=== PATIENT | male | born 1950 | race Caucasian/White ===

== ENCOUNTER 2016-11-08 08:58 | Day surgery (SDC) | payer OTHER ==
[~2016-11-08] VITALS: Ht 180.3 cm; Wt 73.0 kg
[~2016-11-08 08:58] MED LIST: AIRBORNE GUMMI1 EACH PO; ALEVE220 MG PO; CARDIZEM CD,CA240 MG PO; CARVEDILOL6.25 MG PO; DIGOXIN250 MCG PO; FUROSEMIDE40 MG PO; LEVAQUIN500 MG PO; LISINOPRIL10 MG PO; MUCINEX600 MG PO; NICODERM CQ1 EAC1 TD; PRADAXA150 MG PO; PREDNISONE10 MG PO; SOTALOL80 MG PO; SPIRIVA1 INHALATI IH; VENTOLIN HFA18 GM IH
== END 2016-11-08 11:20 | disposition home or self-care (01) ==
LOC: CATH 08:58
PROC: 5A2204Z Restoration of Cardiac Rhythm, Single (ICD-10-PCS; principal; 2016-11-08)
DX: I48.1 Persistent atrial fibrillation (principal); I42.0 Dilated cardiomyopathy; R06.02 Shortness of breath; I10 Essential (primary) hypertension; Z87.891 Personal history of nicotine dependence
CPT/HCPCS: 93005

== ENCOUNTER 2017-08-13 11:33 | Inpatient (IN) | payer OTHER ==
[~2017-08-13] VITALS: Ht 180.3 cm; Wt 78.1 kg
[2017-08-13 12:37] LABS: BASOPHIL (%) 0.5 % (0-1); BASOPHIL COUNT 0.1 K/uL (0-0.1); EOSINOPHIL (%) 0.1 % (0-5); HEMATOCRIT 37.1 % (38.0-50.0); HEMOGLOBIN 13.4 G/DL (12.5-16.6); IMMATURE GRANULOCYTE (%) 0.4 % (0.0-0.7); LYMPHOCYTE (%) 5.4 % (15-42); LYMPHOCYTE COUNT 0.5 K/uL (1.0-2.8); MCH 32.7 PG (29.0-34.0); MCHC 36.1 G/DL (30.0-36.0); MCV 90.5 FL (86-99); MONOCYTE (%) 11.6 % (3-12); MONOCYTE COUNT 1.1 K/uL (0-0.8); NEUTROPHIL COUNT 7.6 K/uL (1.8-6.4); PLATELET COUNT 256 K/uL (156-360); RBC DIS.WIDTH-CV 12.2 % (11.8-14.6); RBC DIS.WIDTH-SD 40.4 % (39-53); WHITE BLOOD COUNT 9.3 K/uL (4.1-10.2)
[2017-08-13 12:48] LABS: ALBUMIN 3.5 g/dL (3.2-4.8); CHLORIDE 89 mEq/L (99-109); SODIUM 122 mEq/L (136-147)
[2017-08-13 12:50] LABS: GLUCOSE 106 mg/dL (70-99); TOTAL PROTEIN 6.5 g/dL (6.4-8.3)
[2017-08-13 12:52] LABS: TOTAL BILIRUBIN 0.8 mg/dL (0.0-1.0)
[2017-08-13 12:54] LABS: ALKALINE PHOSPHATASE 89 IU/L (3-129); CREATININE 0.8 mg/dL (0.6-1.3); GFR ESTIMATE (CALCULATED) > 59 mL/min/ (58.99-99999)
[2017-08-13 12:55] LABS: AST (GOT) 25 IU/L (2-34); UREA NITROGEN (BUN) 11 mg/dL (9-23)
[2017-08-13 12:57] LABS: ALT (GPT) 17 IU/L (3-49)
[2017-08-13 13:01] LABS: TROP-I INTERPRETATION NEGATIVE; TROPONIN-I < 0.01 ng/mL (0.0-0.30)
[2017-08-13 15:54] LABS: THYROTROPIN (TSH) 0.55 MIU/L (0.4-5.5)
[2017-08-13] MEDS ORDERED: PRADAXA150 MG PO (15:54)
[2017-08-13] MEDS ORDERED: LISINOPRIL10 MG PO (15:55)
[2017-08-13] MEDS ORDERED: DIGOXIN250 MCG PO (15:55)
[2017-08-13 16:09] LABS: APPEARANCE CLEAR ((CLEAR)); BILIRUBIN NEGATIVE; BLOOD SMALL; COLOR STRAW ((YELLOW)); GLUCOSE (STRIP) NEGATIVE; KETONES NEGATIVE; LEUKOCYTES NEGATIVE; NITRITE NEGATIVE; PROTEIN (STRIP) NEGATIVE; SPECIFIC GRAVITY 1.005 (1.000-1.030)
[2017-08-13 16:18] LABS: BACTERIA NONE SEEN /HPF; EPITHELIAL CELLS NONE SEEN /HPF; MUCUS NONE SEEN /LPF; RED BLOOD CELLS 0-5 /HPF (0-5); UCUL ADDED? NO; WHITE BLOOD CELLS 0-5 /HPF (0-5)
[2017-08-13 17:11] VITALS: BP 153/86
[2017-08-13 19:39] VITALS: BP 175/85
[2017-08-13 20:26] LABS: TROP-I INTERPRETATION NEGATIVE; TROPONIN-I < 0.01 ng/mL (0.0-0.30)
[2017-08-13 23:30] VITALS: BP 133/73
[2017-08-14 01:03] LABS: TROP-I INTERPRETATION NEGATIVE; TROPONIN-I < 0.01 ng/mL (0.0-0.30)
[2017-08-14 04:00] VITALS: BP 132/74
[2017-08-14 06:55] LABS: CHLORIDE 95 MEQ/L (99-109); CREATININE 0.8 MG/DL (0.6-1.3); GFR ESTIMATE (CALCULATED) > 59 mL/min/ (58.99-99999); GLUCOSE 143 mg/dL (70-99); POTASSIUM 4.2 MEQ/L (3.7-5.4); SODIUM 129 MEQ/L (136-147); UREA NITROGEN (BUN) 13 mg/dL (9-23)
[2017-08-14 07:35] VITALS: BP 132/74
[2017-08-14 11:24] VITALS: BP 136/72
[2017-08-14 19:48] VITALS: BP 137/77
[2017-08-14 23:34] VITALS: BP 130/72
[2017-08-15 03:34] VITALS: BP 132/74
[2017-08-15 07:10] LABS: CHLORIDE 98 MEQ/L (99-109); CREATININE 0.8 MG/DL (0.6-1.3); GFR ESTIMATE (CALCULATED) > 59 mL/min/ (58.99-99999); GLUCOSE 120 mg/dL (70-99); POTASSIUM 3.8 MEQ/L (3.7-5.4); SODIUM 131 MEQ/L (136-147); UREA NITROGEN (BUN) 13 mg/dL (9-23)
[2017-08-15 08:06] VITALS: BP 128/70
[2017-08-15] MEDS ORDERED: PREDNISONE5 M1 PO ×2 (08:59→09:00)
[2017-08-15] MEDS ORDERED: VENTOLIN HFA18 GM IH (08:59)
[2017-08-15] MEDS ORDERED: LEVAQUIN750 MG PO (08:59)
[2017-08-15] MEDS ORDERED: ADVAIR HFA120 INHALA IH (08:59)
[2017-08-15] MEDS ORDERED: OSELTAMIVIR PHO75 MG PO (08:59)
== END 2017-08-15 09:55 | disposition home or self-care (01) | DRG 191 ==
LOC: EME 11:33 → 5SOUTH 14:00 → EDOF 14:00 → ENRESERV 14:09 → 5SOUTH 16:54 → ENPENDDIS 08-15 → 5SOUTH 08-15 09:55
PROVIDERS: Emergency Medicine; Internal Medicine
DX: J44.1 Chronic obstructive pulmonary disease with (acute) exacerbation (principal); E87.1 Hypo-osmolality and hyponatremia; J10.1 Influenza due to other identified influenza virus with other respiratory manifestations; J44.0 Chronic obstructive pulmonary disease with (acute) lower respiratory infection; Z87.891 Personal history of nicotine dependence; R09.02 Hypoxemia; I50.32 Chronic diastolic (congestive) heart failure
CPT/HCPCS: 71020; 80048; 80053; 81003; 83605; 83880; 83930; 83935; 84300; 84443; 84484; 85025; 87040; 87070; 87205; 87502; 93005; 94640; 94640 76; 94799; 99202; 99281; 99285; J0696; J1650; J2930; J7030; J7512

== ENCOUNTER 2017-11-19 14:03 | Inpatient (IN) | payer OTHER ==
[~2017-11-19] VITALS: Ht 180.3 cm; Wt 75.0 kg
[~2017-11-19 14:03] MED LIST changes: +ADVAIR HFA120 INHALA IH; +LEVAQUIN750 MG PO; +OSELTAMIVIR PHO75 MG PO; +PREDNISONE5 M1 PO
[2017-11-19 15:10] LABS: BASOPHIL (%) 0.1 % (0-1); EOSINOPHIL (%) 0 % (0-5); HEMATOCRIT 46.3 % (38.0-50.0); HEMOGLOBIN 15.9 G/DL (12.5-16.6); IMMATURE GRANULOCYTE (%) 0.7 % (0.0-0.7); LYMPHOCYTE (%) 7.5 % (15-42); LYMPHOCYTE COUNT 1.5 K/uL (1.0-2.8); MCH 31.8 PG (29.0-34.0); MCHC 34.3 G/DL (30.0-36.0); MCV 92.6 FL (86-99); MONOCYTE (%) 5.3 % (3-12); NEUTROPHIL (%) 86.4 % (45-76); NEUTROPHIL COUNT 16.8 K/uL (1.8-6.4); PLATELET COUNT 342 K/uL (156-360); RBC DIS.WIDTH-SD 44.3 % (39-53); WHITE BLOOD COUNT 19.5 K/uL (4.1-10.2)
[2017-11-19 15:20] LABS: ALBUMIN 3.8 g/dL (3.2-4.8)
[2017-11-19 15:21] LABS: CHLORIDE 93 mEq/L (99-109); POTASSIUM 4.7 mEq/L (3.7-5.4); SODIUM 129 mEq/L (136-147)
[2017-11-19 15:23] LABS: GLUCOSE 211 mg/dL (70-99); TOTAL PROTEIN 6.8 g/dL (6.4-8.3)
[2017-11-19 15:25] LABS: TOTAL BILIRUBIN 1.2 mg/dL (0.0-1.0)
[2017-11-19 15:26] LABS: ALKALINE PHOSPHATASE 85 IU/L (3-129)
[2017-11-19 15:27] LABS: CREATININE 1.1 mg/dL (0.6-1.3); GFR ESTIMATE (CALCULATED) > 59 mL/min/ (58.99-99999)
[2017-11-19 15:28] LABS: AST (GOT) 38 IU/L (2-34); UREA NITROGEN (BUN) 15 mg/dL (9-23)
[2017-11-19 15:30] LABS: ALT (GPT) 42 IU/L (3-49)
[2017-11-19 15:31] LABS: TROP-I INTERPRETATION NEGATIVE; TROPONIN-I 0.02 ng/mL (0.0-0.30)
[2017-11-19] MEDS ORDERED: DOXYCYCLINE MO100 MG PO (18:21)
[2017-11-19] MEDS ORDERED: PROAIR HFA8.5 GM IH (18:21)
[2017-11-19] MEDS ORDERED: DELTASONE20 M1 PO (18:21)
[2017-11-19 22:12] VITALS: BP 160/113
[2017-11-19 23:00] VITALS: BP 126/82
[2017-11-20] VITALS (14 sets, daily range): BP systolic 107–139; BP diastolic 57–93
[2017-11-20 00:05] LABS: INTER. NORMALIZED RATIO 1.1
[2017-11-20 00:08] LABS: PTT 26.6 SEC (25-37)
[2017-11-20 05:28] LABS: BASE EXCESS 4.1 mEq/L (-3 to +3); BICARBONATE 27.4 mEq/L (22-26); CARBOXY HGB 2.3 % (0-5); COMMENTS - BLOOD GASES C+; DEVICE VENT; FI02 30 %; METHEMOGLOBIN 1.6 % (0-1.5); MODE SPON; PCO2 36 mm Hg (35-45); PO2 88 mm Hg (80-100); PRES. SUPPORT 8 CM/H2O; SITE LB; TOTAL RESP RATE 16 resp/min; pH 7.49 (7.35-7.45)
[2017-11-20 05:29] LABS: PEEP 5 CM/H20
[2017-11-20 07:00] LABS: BASOPHIL (%) 0.1 % (0-1); EOSINOPHIL (%) 0 % (0-5); HEMATOCRIT 38.2 % (38.0-50.0); IMMATURE GRANULOCYTE (%) 0.8 % (0.0-0.7); LYMPHOCYTE (%) 11.4 % (15-42); LYMPHOCYTE COUNT 1.2 K/uL (1.0-2.8); MCH 30.9 PG (29.0-34.0); MCHC 34.6 G/DL (30.0-36.0); MCV 89.5 FL (86-99); MONOCYTE (%) 6.1 % (3-12); MONOCYTE COUNT 0.6 K/uL (0-0.8); NEUTROPHIL (%) 81.6 % (45-76); NEUTROPHIL COUNT 8.4 K/uL (1.8-6.4); PLATELET COUNT 330 K/uL (156-360); RBC DIS.WIDTH-CV 12.7 % (11.8-14.6); RBC DIS.WIDTH-SD 41.6 % (39-53); RED BLOOD COUNT 4.27 M/uL (4.00-5.50); WHITE BLOOD COUNT 10.3 K/uL (4.1-10.2)
[2017-11-20 07:01] LABS: HEMOGLOBIN 13.2 G/DL (12.5-16.6)
[2017-11-20 07:04] LABS: INTER. NORMALIZED RATIO 1.1
[2017-11-20 07:07] LABS: PTT 34.4 SEC (25-37)
[2017-11-20 07:19] LABS: CHLORIDE 101 MEQ/L (99-109); CREATININE 0.8 MG/DL (0.6-1.3); GFR ESTIMATE (CALCULATED) > 59 mL/min/ (58.99-99999); GLUCOSE 128 mg/dL (70-99); MAGNESIUM 1.9 mg/dl (1.3-2.7); PHOSPHORUS 3.3 mg/dL (2.5-4.9); POTASSIUM 4.3 MEQ/L (3.7-5.4); UREA NITROGEN (BUN) 12 mg/dL (9-23)
[2017-11-20 07:29] LABS: SODIUM 136 MEQ/L (136-147)
[2017-11-20 14:45] LABS: ALBUMIN 3.2 G/DL (3.2-4.8); ALKALINE PHOSPHATASE 58 IU/L (3-129); ALT (GPT) 26 IU/L (3-49); AST (GOT) 20 IU/L (2-34); DIRECT BILIRUBIN 0.4 mg/dL (0.0-0.3); TOTAL BILIRUBIN 1.2 MG/DL (0.0-1.0); TOTAL PROTEIN 5.5 G/DL (6.4-8.3)
[2017-11-21] VITALS (8 sets, daily range): BP systolic 126–150; BP diastolic 65–94
[2017-11-21 01:01] LABS: INTER. NORMALIZED RATIO 1.1
[2017-11-21 01:21] LABS: PTT 54.4 SEC (25-37)
[2017-11-21 07:25] LABS: BASOPHIL (%) 0.1 % (0-1); EOSINOPHIL (%) 0 % (0-5); HEMATOCRIT 39.8 % (38.0-50.0); HEMOGLOBIN 13.5 G/DL (12.5-16.6); IMMATURE GRANULOCYTE (%) 0.8 % (0.0-0.7); LYMPHOCYTE (%) 8.3 % (15-42); LYMPHOCYTE COUNT 1.1 K/uL (1.0-2.8); MCH 30.9 PG (29.0-34.0); MCHC 33.9 G/DL (30.0-36.0); MCV 91.1 FL (86-99); MONOCYTE (%) 3.4 % (3-12); MONOCYTE COUNT 0.5 K/uL (0-0.8); NEUTROPHIL (%) 87.4 % (45-76); NEUTROPHIL COUNT 11.5 K/uL (1.8-6.4); PLATELET COUNT 349 K/uL (156-360); RBC DIS.WIDTH-CV 12.9 % (11.8-14.6); RBC DIS.WIDTH-SD 42.7 % (39-53); RED BLOOD COUNT 4.37 M/uL (4.00-5.50); WHITE BLOOD COUNT 13.1 K/uL (4.1-10.2)
[2017-11-21 07:33] LABS: INTER. NORMALIZED RATIO 1.1
[2017-11-21 07:35] LABS: PTT 48.2 SEC (25-37)
[2017-11-21 07:46] LABS: ALBUMIN 3.1 G/DL (3.2-4.8); ALKALINE PHOSPHATASE 51 IU/L (3-129); ALT (GPT) 31 IU/L (3-49); AST (GOT) 21 IU/L (2-34); CHLORIDE 102 MEQ/L (99-109); DIRECT BILIRUBIN 0.1 mg/dL (0.0-0.3); GFR ESTIMATE (CALCULATED) > 59 mL/min/ (58.99-99999); GLUCOSE 126 mg/dL (70-99); POTASSIUM 4.6 MEQ/L (3.7-5.4); SODIUM 136 MEQ/L (136-147); TOTAL PROTEIN 5.2 G/DL (6.4-8.3); UREA NITROGEN (BUN) 18 mg/dL (9-23)
[2017-11-21 07:48] LABS: TOTAL BILIRUBIN 0.7 MG/DL (0.0-1.0)
[2017-11-22] VITALS: BP 126/83
[2017-11-22 02:00] VITALS: BP 131/78
[2017-11-22 04:00] VITALS: BP 139/84
[2017-11-22 05:04] LABS: HEMATOCRIT 39.2 % (38.0-50.0); HEMOGLOBIN 13.7 G/DL (12.5-16.6); MCH 31.6 PG (29.0-34.0); MCHC 34.9 G/DL (30.0-36.0); MCV 90.5 FL (86-99); PLATELET COUNT 354 K/uL (156-360); RBC DIS.WIDTH-CV 12.8 % (11.8-14.6); RBC DIS.WIDTH-SD 42.5 % (39-53); RED BLOOD COUNT 4.33 M/uL (4.00-5.50); WHITE BLOOD COUNT 14.3 K/uL (4.1-10.2)
[2017-11-22 05:18] LABS: CHLORIDE 99 mEq/L (99-109); POTASSIUM 4.4 mEq/L (3.7-5.4); SODIUM 136 mEq/L (136-147)
[2017-11-22 05:20] LABS: GLUCOSE 124 mg/dL (70-99)
[2017-11-22 05:23] LABS: CREATININE 0.9 mg/dL (0.6-1.3); GFR ESTIMATE (CALCULATED) > 59 mL/min/ (58.99-99999)
[2017-11-22 05:24] LABS: UREA NITROGEN (BUN) 18 mg/dL (9-23)
[2017-11-22 06:00] VITALS: BP 135/79
[2017-11-22 08:00] VITALS: BP 161/98
[2017-11-22 10:00] VITALS: BP 157/94
[2017-11-22] MEDS ORDERED: AMOX TR-K CLV1 EAC4 PO (11:45)
[2017-11-22] MEDS ORDERED: PREDNISONE10 MG PO (11:45)
[2017-11-22] MEDS ORDERED: ELIQUIS5 MG PO (11:45)
[2017-11-22] MEDS ORDERED: LISINOPRIL10 MG PO (11:45)
[2017-11-22] MEDS ORDERED: DIGOXIN250 MCG PO (11:45)
[2017-11-22] MEDS ORDERED: PROAIR HFA8.5 GM IH (11:45)
[2017-11-22] MEDS ORDERED: LO-DOSE ASPIRIN81 M1 PO (11:46)
[2017-11-22] MEDS ORDERED: VENTOLIN HFA18 GM IH (11:47)
== END 2017-11-22 13:37 | disposition home or self-care (01) | DRG 189 ==
LOC: EME 14:03 → EDOF 20:52 → ENRESERV 20:52 → 4WEST 20:52 → ENRESERV 21:06 → 4WEST 22:00
PROVIDERS: Emergency Medicine Emergency Medical Services; Internal Medicine; Internal Medicine Cardiovascular Disease; Obstetrics & Gynecology; Specialist
PROC: 5A2204Z Restoration of Cardiac Rhythm, Single (ICD-10-PCS; principal; 2017-11-19)
PROC: 5A09357 Assistance with Respiratory Ventilation, Less than 24 Consecutive Hours, Continuous Positive Airway Pressure (ICD-10-PCS; principal; 2017-11-19)
DX: J96.01 Acute respiratory failure with hypoxia (principal); J44.1 Chronic obstructive pulmonary disease with (acute) exacerbation; I11.0 Hypertensive heart disease with heart failure; I50.23 Acute on chronic systolic (congestive) heart failure; I48.0 Paroxysmal atrial fibrillation; J20.9 Acute bronchitis, unspecified; J44.0 Chronic obstructive pulmonary disease with (acute) lower respiratory infection; I42.0 Dilated cardiomyopathy; E87.1 Hypo-osmolality and hyponatremia; R17 Unspecified jaundice; F10.10 Alcohol abuse, uncomplicated; F41.9 Anxiety disorder, unspecified; Z91.14 Patient's other noncompliance with medication regimen; Z91.19 Patient's noncompliance with other medical treatment and regimen; Z79.01 Long term (current) use of anticoagulants; Z87.01 Personal history of pneumonia (recurrent); Z87.891 Personal history of nicotine dependence; Z82.3 Family history of stroke; Z82.49 Family history of ischemic heart disease and other diseases of the circulatory system
CPT/HCPCS: 36600; 71045; 80048; 80053; 80076; 82803; 83605; 83735; 83880; 84100; 84484; 85025; 85027; 85610; 85730; 87040; 87641; 93005; 93306; 94002; 94640; 94640 76; 94645; 94799; 99202; 99281; 99285; J0153; J0456; J1160; J2060; J2270; J2543; J2704; J2930; J3370; J3411; J3475; J7040; J7050; J7120; J7644

== ENCOUNTER 2018-02-13 13:21 | Day surgery (SDC) | payer OTHER ==
[~2018-02-13] VITALS: Ht 180.3 cm; Wt 74.8 kg
[~2018-02-13 13:21] MED LIST changes: +AMOX TR-K CLV1 EAC4 PO; +DELTASONE20 M1 PO; +DOXYCYCLINE MO100 MG PO; +ELIQUIS5 MG PO; +LO-DOSE ASPIRIN81 M1 PO; +PROAIR HFA8.5 GM IH; +SERTRALINE HCL50 MG PO
[2018-02-13] MEDS ORDERED: SOTALOL80 MG PO (13:50)
== END 2018-02-13 15:35 | disposition home or self-care (01) ==
LOC: CATH 13:21
PROC: 5A2204Z Restoration of Cardiac Rhythm, Single (ICD-10-PCS; principal; 2018-02-13)
DX: I48.1 Persistent atrial fibrillation (principal); I42.9 Cardiomyopathy, unspecified; I10 Essential (primary) hypertension; Z87.891 Personal history of nicotine dependence; E11.9 Type 2 diabetes mellitus without complications; Z79.4 Long term (current) use of insulin; K21.9 Gastro-esophageal reflux disease without esophagitis; Z79.01 Long term (current) use of anticoagulants
CPT/HCPCS: 93005; J2250